=== PATIENT | male | born 1995 | race Caucasian/White ===

== ENCOUNTER 2016-12-07 13:29 | Emergency (ER) | payer OTHER ==
[2016-12-07 13:47] VITALS: BP 136/90
--- NOTE | 2016-12-07 14:03 | UC ---
Ariel Salas Benjamin, scribed for Andrei Thakkar MD on 12/07/16 at 1346 . Head Injury HPI - HPI Summary HPI Summary: 21yo male who slip and hit his head against the wall front forward last night at the shower. This morning, pt noticed that he couldnt read the text messages from his phone, 3 out of 10 intensity WILLS, and had blurry vision. Pt also reports seeing spots in the middle of his visual field on both eyes. Pt denies nausea, vomiting, ortiz pain, or local weakness. No change in speech or swallowing. Pt had a. - History Of Current Complaint Chief Complaint: UCHeadInjury Stated Complaint: HEAD INJURY-VISION ISSUES Hx Obtained From: Patient Onset/Duration: Sudden Onset, Still Present Severity Currently: None Severity Initially: Moderate Aggravating Factor(s): Nothing Alleviating Factor(s): Nothing Associated Signs And Symptoms: Positive: Other - visual changes. Negative: LOC (Time In Secs./Mins/Hrs) - Allergies/Home Medications Allergies/Adverse Reactions: Allergies Allergy/AdvReac Type Severity Reaction Status Date / Time No Known Allergies Allergy Verified 11/11/15 16:59 PMH/Surg Hx/FS Hx/Imm Hx Endocrine History Of: Denies: Diabetes, Thyroid Disease Cardiovascular History Of: Denies: Cardiac Disorders, Hypertension Respiratory History Of: Reports: Asthma Denies: COPD GI/ History Of: Denies: Ulcer - Surgical History Surgical History: None - Family History Known Family History: Positive: None - Social History Occupation: Student Lives: Alone Alcohol Use: Occasionally Substance Use Type: None Smoking Status (MU): Never Smoked Tobacco Review of Systems Constitutional: Negative Skin: Negative Eyes: Blurred Vision, Other - visual changes ENT: Negative Respiratory: Negative Cardiovascular: Negative Gastrointestinal: Negative Genitourinary: Negative Motor: Negative Neurovascular: Negative Musculoskeletal: Negative Neurological: Headache Psychological: Negative All Other Systems Reviewed And Are Negative: Yes Physical Exam Triage Information Reviewed: Yes Appearance: Well-Appearing, No Pain Distress, Other: - The patient is fully alert and oriented and able to communicate in full sentences and make decisions clearly. Vital Signs: Initial Vital Signs Temp 98.7 F 12/07/16 13:42 Pulse 100 12/07/16 13:42 Resp 18 12/07/16 13:42 BP 136/90 12/07/16 13:42 Pulse Ox 100 12/07/16 13:42 Vital Signs Reviewed: Yes Eye Exam: Other - PERRLA, EOMI Eyes: Positive: Conjunctiva Clear ENT: Positive: Normal ENT inspection, TMs normal Neck: Negative: Nontender Respiratory: Positive: Chest non-tender, Lungs clear Cardiovascular: Positive: RRR Abdomen Description: Positive: Other: - obese Musculoskeletal Exam: Normal Neurological Exam: Normal, Other - GCS 15, CN 2-12 grossly intact. Strength 5/5 throughout, sensory grossly intact. Gait: Walks with normal gait. Visual acuity reviewed and as documented by nurse triage note. Neurological: Positive: Alert Psychological Exam: Normal Skin Exam: Normal Head Injury Course/Dx - Course Course Of Treatment: 21 yr old with contusion to forehead and seeing black spot in his visual field. He refuses trasport to the trauma center in [place] where they have optho to evaluate his retina/vitreus among the head injury. He signed out AMA with risks understood not going by ambulance for expedited care. The patient was discussed with transfer center at [facility] for them to see there and they are aware the patient declined EMS, and wants to go by private car. - Differential Dx/Diagnosis Provider Diagnoses: visual disturbance. contusion forehead/ head injury. Discharge - Discharge Plan Condition: Good Disposition: AGAINST MEDICAL ADVICE The documentation as recorded by the Ariel colon Benjamin accurately reflects the service I personally performed and the decisions made by me, Andrei Thakkar MD.
== END 2016-12-07 14:01 | disposition left against medical advice (07) ==
LOC: UCEAST 13:29
DX: H53.453 Other localized visual field defect, bilateral (principal); S00.83XA Contusion of other part of head, initial encounter; W22.01XA Walked into wall, initial encounter; Y93.9 Activity, unspecified; Y99.9 Unspecified external cause status; J45.909 Unspecified asthma, uncomplicated
CPT/HCPCS: 99212; G0463